=== PATIENT | male | born 1955 | race Caucasian/White ===

== ENCOUNTER → 2021-04-17 03:15 | Outpatient (CLI) | payer OTHER, SELFPAY ==
[2021-04-18 22:39] LABS: SARS-CoV-2 RNA PCR Positive
== END ==
PROVIDERS: Internal Medicine Gastroenterology; PCP Internal Medicine; Visit Provider Internal Medicine Gastroenterology
DX: U07.1 COVID-19 (principal)
CPT/HCPCS: C9803; U0003; U0005